=== PATIENT | male | born 1995 | race African-American/Black ===

== ENCOUNTER 2016-11-03 17:23 | Emergency (ER) | payer OTHER ==
[~2016-11-03] VITALS: Ht 154.9 cm; Wt 63.5 kg
== END 2016-11-03 18:48 | disposition home or self-care (01) ==
LOC: ED 17:23
DX: S60.031A Contusion of right middle finger without damage to nail, initial encounter (principal); S61.212A Laceration without foreign body of right middle finger without damage to nail, initial encounter; W45.0XXA Nail entering through skin, initial encounter; Y92.89 Other specified places as the place of occurrence of the external cause
CPT/HCPCS: 90715; 99282